=== PATIENT | female | born 1990 | race Two or more races ===

== ENCOUNTER 2024-09-08 17:48 | Inpatient (IN) | payer OTHER ==
[~2024-09-08] VITALS: Ht 160 cm; Wt 54.4 kg
[2024-09-08 18:02] VITALS: O2SAT 100
[2024-09-08] MEDS ORDERED: SPRINTEC 28 DA1 EAC1 PO (18:05)
[2024-09-08] MEDS ORDERED: IRON236 MG PO (18:05)
--- NOTE | 2024-09-08 18:09 | NUR ---
SE RECIBE PACIENTE ALERTA Y CONCIENTE X3. EL MISMO REFIERE TENER MENSTRUACION ATRASADA DE 31 HEATH CORRIDO, DEBILIDAD, FATIGA E INDICA REALIZARSE UNOS LABORATORIOS EN EL [place] DE [place] Y SALIR CON HEMOGLOBINA EN 7. PACIENTE REFIERE TENER DOLOR ABDOMINAL. SE PROCEDE A MOIRA S/V A LA PACIENTE Y SE UBICA EN CAMA 13 CON BARANDAS ELEVADAS Y NIVEL MAS BAJO DE TRUONG.
[2024-09-08] MEDS ORDERED: ESTROGENS, CONJUGATED 25 MG VIAL IV ONE (19:00)
[2024-09-08] MEDS ORDERED: 0.9 % SODIUM CHLORIDE 1,000 ML IV SCH ×2 (19:00→21:00)
[2024-09-08] MEDS ORDERED: FUROsemide 20 MG/2 ML VIAL IV SCH (19:00)
[2024-09-08 19:11] LABS: BASO % 0.2 % (0.1-1.2); EOS # 0.04 (0.04-0.54); EOS % 0.8 % (0.7-7.0); LYMPH # 0.83 (1.18-3.74); LYMPH % 17.4 % (19.3-53.1); MEAN CORPUSCULAR HEMOGLOBIN 29.8 pg (25.6-32.2); MONO # 0.38 (0.24-0.82); NEUT # 3.48 (1.56-6.13); NEUT % 73.2 % (34.0-71.1); PLATELET COUNT 158 K/uL (163-369); RED BLOOD COUNT 2.38 M/uL (3.93-5.22); RED CELL DISTRIBUTION WIDTH 15.4 % (11.6-14.4)
[2024-09-08 19:32] LABS: INR < 0.93; PARTIAL THROMBOPLASTIN TIME 23.1 SECONDS (22.0-34.0); PROTHROMBIN TIME 9.9 SECONDS (9.0-11.5)
--- NOTE | 2024-09-08 19:35 | NUR ---
SE ORIENTA PTE SOBRE TX A SEGUIR, LA MISMA REFIERE ENTENDER. SE SUGEY MUESTRA DE LAB, SE CANALIZA Y SE ADMINISTRA MED MARISELA ORDEN MEDICA. PTE FIRMA CONSENTIMIENTO DE TRANSFUSION, SE LE GREGG TUBOS PILOTOS PARA REQUIZICION. SE REQUIZA 2 U DE PRBC Y SE LLEVA A LAB.
[2024-09-08 19:37] LABS: ALBUMIN 2.8 gm/dL (3.4-5.0); BILIRUBIN TOTAL 0.1 mg/dL (0.3-1.2); CALCIUM 7.9 mg/dL (8.5-10.1); CREATININE SERUM 0.83 mg/dL (0.55-1.02); GFR 77.78; POTASSIUM 3.67 mEq/L (3.5-5.1); TOTAL PROTEIN 5.8 gm/dL (6.4-8.2)
[2024-09-08 19:38] LABS: HEMATOCRIT 21.4 % (34.1-44.9)
[2024-09-08 19:39] LABS: HEMOGLOBIN 7.1 g/dL (11.2-15.7)
[2024-09-08] MEDS ORDERED: ESTROGENS, CONJUGATED 25 MG VIAL ONE (19:55)
[2024-09-08] MEDS ORDERED: ONDANSETRON HCL 2 MG/ML VIAL IV SCH (20:51)
[2024-09-08] MEDS ORDERED: FAMOTIDINE/PF 20 MG/2 ML VIAL IV SCH (21:00)
[2024-09-08 23:04] LABS: URINE APPEARANCE Cloudy; URINE BILIRRUBIN Negative (NEGATIVE); URINE BLOOD Large; URINE COLOR Orange; URINE GLUCOSE Negative (NEGATIVE); URINE KETONE Negative (NEGATIVE); URINE LEUKOCYTE Small; URINE NITRATE Negative; URINE PROTEIN Negative (NEGATIVE)
[2024-09-08 23:08] LABS: URINE BACTERIA 177.4 uL (0.0-1933); URINE EPITHELIAL CELLS 3.1 uL (0.0-38.8); URINE RBC 8977.4 uL (0.0-20.8); URINE WBC 19.9 uL (0.0-23.2)
[2024-09-09 01:05] VITALS: BP 107/69
[2024-09-09] MEDS ORDERED: ESTROGENS, CONJUGATED 25 MG VIAL IV SCH ×2 (02:00→18:00)
[2024-09-09 04:13] VITALS: BP 106/68
[2024-09-09 08:45] VITALS: BP 100/63
[2024-09-09 16:00] VITALS: BP 112/72
[2024-09-09 21:10] LABS: BASO % 0.4 % (0.1-1.2); EOS # 0.15 (0.04-0.54); HEMATOCRIT 35.4 % (34.1-44.9); HEMOGLOBIN 12.2 g/dL (11.2-15.7); LYMPH # 1.52 (1.18-3.74); LYMPH % 19.8 % (19.3-53.1); MEAN CORPUSCULAR HEMOGLOBIN 29.9 pg (25.6-32.2); MONO # 0.73 (0.24-0.82); MONO % 9.5 % (4.7-12.5); NEUT # 5.24 (1.56-6.13); PLATELET COUNT 189 K/uL (163-369); RED BLOOD COUNT 4.08 M/uL (3.93-5.22); RED CELL DISTRIBUTION WIDTH 15.5 % (11.6-14.4)
[2024-09-10 00:02] VITALS: BP 90/60
[2024-09-10 04:30] VITALS: BP 99/63
[2024-09-10] MEDS ORDERED: KETOROLAC TROMETHAMINE 30 MG VIAL IV STA (07:21)
[2024-09-10 08:00] VITALS: BP 96/60
== END 2024-09-10 09:54 | disposition home or self-care (01) | DRG 761 ==
LOC: ER 18:55 → OB/GYN 21:01
PROVIDERS: General Practice; ADMIT Obstetrics & Gynecology; ATTEND Obstetrics & Gynecology
PROC: BU4CZZZ Ultrasonography of Uterus and Ovaries (ICD-10-PCS; principal; 2024-09-08)
PROC: 30233N1 Transfusion of Nonautologous Red Blood Cells into Peripheral Vein, Percutaneous Approach (ICD-10-PCS; 2024-09-09)
DX: N93.9 Abnormal uterine and vaginal bleeding, unspecified (principal)

== ENCOUNTER 2024-10-20 08:45 | Inpatient (IN) | payer OTHER ==
[~2024-10-20] VITALS: Ht 160 cm; Wt 55.8 kg
[~2024-10-20 08:45] MED LIST: IRON236 MG PO; SPRINTEC 28 DA1 EAC1 PO
[2024-10-20 11:13] VITALS: BP 104/68
[2024-10-20 11:18] LABS: BASO % 0.5 % (0.1-1.2); EOS # 0.07 (0.04-0.54); EOS % 1.6 % (0.7-7.0); LYMPH # 1.53 (1.18-3.74); LYMPH % 34.7 % (19.3-53.1); MEAN PLATELET VOLUME 11.40 fl (9.4-12.4); MONO # 0.30 (0.24-0.82); MONO % 6.8 % (4.7-12.5); NEUT # 2.48 (1.56-6.13); NEUT % 56.2 % (34.0-71.1); RED CELL DISTRIBUTION WIDTH 14.6 % (11.6-14.4)
[2024-10-20 11:23] LABS: URINE APPEARANCE Clear; URINE BILIRRUBIN Negative (NEGATIVE); URINE BLOOD Small; URINE COLOR Yellow; URINE GLUCOSE Negative (NEGATIVE); URINE KETONE Negative (NEGATIVE); URINE LEUKOCYTE Negative; URINE NITRATE Negative; URINE PROTEIN Negative (NEGATIVE); URINE UROBILINOGEN 0.2 E.U./dl
[2024-10-20 11:27] LABS: URINE BACTERIA 10.7 uL (0.0-1933); URINE RBC 41.2 uL (0.0-20.8)
[2024-10-20 11:37] LABS: URINE CAST 0.00 uL (0.0-1.40); URINE EPITHELIAL CELLS 1.3 uL (0.0-38.8); URINE WBC 0.9 uL (0.0-23.2)
[2024-10-20 11:56] LABS: INR 0.95
[2024-10-20 12:05] LABS: ALT/SGPT 27.0 U/L (12-78); AST/SGOT 16.0 U/L (15-37); BILIRUBIN TOTAL 0.49 mg/dL (0.3-1.2); BUN CREA RATIO 13.0 (7.0-25.0); CREATININE SERUM 0.78 mg/dL (0.55-1.02); GFR 83.57; GLOBULINA 3.3 G/DL (2.4-3.5); GLUCOSE FASTING 80.0 mg/dL (65-100); OSMOLALITY SERUM 281.0 MOSM/KG (275-295); RH POSITIVE
[2024-10-25] MEDS ORDERED: VASOPRESSIN 20 UNITS/ML VIAL IJ ONE (12:30)
[2024-10-25] MEDS ORDERED: POVIDONE-IODINE 118 ML BOTT TOP ONE (12:30)
[2024-10-25] MEDS ORDERED: TRANEXAMIC ACID 100MG/1ML (1000MG) AMPUL IV ONE (12:45)
[2024-10-25] MEDS ORDERED: METHYLENE BLUE 10MG/ML 10 ML AMPUL IV ONE (14:30)
[2024-10-25] MEDS ORDERED: THROMBIN,HU/FIBRINOGEN/CALCIUM 10 ML SYRINGE TOP ONE (15:15)
[2024-10-25] MEDS ORDERED: SURGIFLO APPLICATOR 1 EACH APPL TOP ONE (16:15)
[2024-10-25] MEDS ORDERED: HEMOSTATIC MATRIX 1 KIT KIT TOP ONE (16:15)
[2024-10-25] MEDS ORDERED: SUGAMMADEX SODIUM 200 MG/2 ML VIAL IV ONE (17:45)
[2024-10-25] MEDS ORDERED: KETOROLAC TROMETHAMINE 30 MG VIAL IV SCH (18:15)
[2024-10-25] MEDS ORDERED: RINGERS SOLUTION,LACTATED 1,000 ML IV SCH (18:15)
[2024-10-25] MEDS ORDERED: GABAPENTIN 300 MG CAPSULE PO SCH (18:16)
[2024-10-25] MEDS ORDERED: ACETAMINOPHEN 500 MG GEL..CAP PO SCH (18:16)
[2024-10-25] MEDS ORDERED: MORPHINE SULFATE 4 MG/ML VIAL IV ONE ×2 (18:25→18:55)
[2024-10-25 21:23] VITALS: BP 102/64
[2024-10-26] VITALS: BP 96/60
[2024-10-26 06:20] LABS: BASO % 0.2 % (0.1-1.2); EOS # 0.06 (0.04-0.54); EOS % 1.0 % (0.7-7.0); LYMPH # 0.96 (1.18-3.74); LYMPH % 16.5 % (19.3-53.1); MEAN PLATELET VOLUME 12.30 fl (9.4-12.4); MONO # 0.34 (0.24-0.82); MONO % 5.9 % (4.7-12.5); NEUT # 4.43 (1.56-6.13); NEUT % 76.2 % (34.0-71.1); RED CELL DISTRIBUTION WIDTH 14.3 % (11.6-14.4)
[2024-10-26 07:57] VITALS: BP 106/73
== END 2024-10-26 11:02 | disposition home or self-care (01) | DRG 743 ==
LOC: OB/GYN 10-25 08:45 → O/R 10-25 10:32 → OB/GYN 10-25 12:00
PROVIDERS: ADMIT Student in an Organized Health Care Education/Training Program; ATTEND Student in an Organized Health Care Education/Training Program
PROC: 0TN74ZZ Release Left Ureter, Percutaneous Endoscopic Approach (ICD-10-PCS; 2024-10-25)
PROC: 0TN64ZZ Release Right Ureter, Percutaneous Endoscopic Approach (ICD-10-PCS; 2024-10-25)
PROC: 0DBW4ZZ Excision of Peritoneum, Percutaneous Endoscopic Approach (ICD-10-PCS; 2024-10-25)
PROC: 0DBW4ZZ Excision of Peritoneum, Percutaneous Endoscopic Approach (ICD-10-PCS; 2024-10-25)
PROC: 0UBF4ZZ Excision of Cul-de-sac, Percutaneous Endoscopic Approach (ICD-10-PCS; 2024-10-25)
PROC: 0UB44ZZ Excision of Uterine Supporting Structure, Percutaneous Endoscopic Approach (ICD-10-PCS; 2024-10-25)
PROC: 0BBT4ZX Excision of Diaphragm, Percutaneous Endoscopic Approach, Diagnostic (ICD-10-PCS; 2024-10-25)
PROC: 8E0W4CZ Robotic Assisted Procedure of Trunk Region, Percutaneous Endoscopic Approach (ICD-10-PCS; 2024-10-25)
PROC: 3E1P88Z Irrigation of Female Reproductive using Irrigating Substance, Via Natural or Artificial Opening Endoscopic (ICD-10-PCS; 2024-10-25)
PROC: 0UB94ZZ Excision of Uterus, Percutaneous Endoscopic Approach (ICD-10-PCS; principal; 2024-10-25 12:00)
DX: D25.0 Submucous leiomyoma of uterus (principal); N92.0 Excessive and frequent menstruation with regular cycle; N94.5 Secondary dysmenorrhea; N93.9 Abnormal uterine and vaginal bleeding, unspecified; N80.B39 Endometriosis of diaphragm, unspecified depth; N80.319 Endometriosis of the anterior cul-de-sac, unspecified depth; N80.329 Endometriosis of the posterior cul-de-sac, unspecified depth; N80.101 Endometriosis of right ovary, unspecified depth; N80.3C3 Endometriosis of bilateral uterosacral ligament(s), unspecified depth; N80.353 Endometriosis of bilateral pelvic sidewall, unspecified depth
CPT/HCPCS: 58545; 50715; 58662; 39599; 58350; S2900